=== PATIENT | female | born 1950 | race Two or more races ===

== ENCOUNTER 2021-01-07 08:00 | Outpatient (CLI) | payer OTHER | END 2021-01-07 08:30 | disposition home or self-care (01) | LOC: PPH VACUNA 08:00 | PROVIDERS: ATTEND Emergency Medicine Pediatric Emergency Medicine | DX: Z23 Encounter for immunization (principal) ==

== ENCOUNTER 2021-07-18 08:00 | Outpatient (CLI) | payer OTHER | END 2021-07-18 08:30 | disposition home or self-care (01) | LOC: PPH VACUNA 08:00 | PROVIDERS: ATTEND Emergency Medicine Pediatric Emergency Medicine | DX: Z23 Encounter for immunization (principal) ==

== ENCOUNTER 2022-07-24 | Outpatient (CLI) | payer OTHER | END 2022-07-24 00:15 | disposition home or self-care (01) | LOC: PPH VACUNA | PROVIDERS: ATTEND Emergency Medicine Pediatric Emergency Medicine | DX: Z23 Encounter for immunization (principal) ==

== ENCOUNTER → 2022-07-24 | Outpatient (CLI) | payer OTHER | END | disposition home or self-care (01) | LOC: PPH VACUNA | PROVIDERS: ATTEND Emergency Medicine Pediatric Emergency Medicine | DX: Z23 Encounter for immunization (principal) ==

== ENCOUNTER 2024-05-11 10:45 | Inpatient (IN) | payer OTHER ==
[~2024-05-11] VITALS: Ht 132.1 cm; Wt 64.9 kg
[2024-05-11 13:08] VITALS: BP 135/90
[2024-05-11 13:09] VITALS: BP 137/80
[2024-05-11 13:10] LABS: RH POSITIVE
[2024-05-11] MEDS ORDERED: SYNTHROID125 MCG PO (13:13)
[2024-05-11] MEDS ORDERED: COZAAR50 MG PO (13:14)
[2024-05-11] MEDS ORDERED: LOVAZA1 GM PO (13:14)
[2024-05-11] MEDS ORDERED: ZOFRAN8 MG (13:15)
[2024-05-11] MEDS ORDERED: BAYER THERAPY325 MG (13:16)
[2024-05-11] MEDS ORDERED: PROTONIX40 MG PO (13:16)
[2024-05-11] MEDS ORDERED: FLEXERIL (13:17)
[2024-05-11] MEDS ORDERED: PEPCID40 MG PO (13:17)
[2024-05-11] MEDS ORDERED: ANIMAL CHEWS1 EACH PO (13:18)
[2024-05-11] MEDS ORDERED: CLARINEX-D 121 EACH (13:18)
[2024-05-18] MEDS ORDERED: CHLORHEXIDINE GLUCONATE 120 ML BOTTLE TOP ONE (12:51)
[2024-05-18] MEDS ORDERED: METRONIDAZOLE/SODIUM CHLORIDE 500 MG/100 ML PIGGYBACK IV ONE (12:51)
[2024-05-18] MEDS ORDERED: CEFAZOLIN SODIUM 1,000 MG VIAL ONE ×2 (12:51→17:23)
[2024-05-18] MEDS ORDERED: MORPHINE SULFATE 4 MG/ML CARTRIDGE IV PRN (14:30)
[2024-05-18] MEDS ORDERED: RINGERS SOLUTION,LACTATED 1,000 ML IV SCH (14:30)
[2024-05-18] MEDS ORDERED: KETOROLAC TROMETHAMINE 30 MG VIAL IV NR (14:30)
[2024-05-18] MEDS ORDERED: THROMBIN,HU/FIBRINOGEN/CALCIUM 10 ML SYRINGE TOP ONE ×2 (14:37→15:00)
[2024-05-18] MEDS ORDERED: ENALAPRILAT DIHYDRATE 1.25 MG/ML VIAL IV ONE (16:05)
[2024-05-18] MEDS ORDERED: MORPHINE SULFATE 4 MG/ML VIAL IV ONE (16:45)
[2024-05-18] MEDS ORDERED: METOCLOPRAMIDE HCL 5 MG/ML VIAL IV SCH (17:00)
[2024-05-18] MEDS ORDERED: SIMETHICONE 125 MG CAPSULE PO SCH (17:00)
[2024-05-18] MEDS ORDERED: CEFAZOLIN SODIUM 1,000 MG VIAL IV SCH (17:00)
[2024-05-18] MEDS ORDERED: KETOROLAC TROMETHAMINE 30 MG VIAL ONE (17:22)
[2024-05-18] MEDS ORDERED: METOCLOPRAMIDE HCL 5 MG/ML VIAL ONE (17:23)
[2024-05-18] MEDS ORDERED: KETOROLAC TROMETHAMINE 30 MG VIAL IV ONE (17:25)
[2024-05-18] MEDS ORDERED: ACETAMINOPHEN 500 MG GEL..CAP PO SCH (18:00)
[2024-05-18] MEDS ORDERED: KETOROLAC TROMETHAMINE 30 MG VIAL IM SCH (18:00)
[2024-05-18 19:18] LABS: HEMATOCRIT 36.4 % (36.0-45.00); HEMOGLOBIN 12.3 g/dL (12.0-15.00); MEAN CELL VOLUME 103.9 fL (80.00-100.00); MEAN CORPUSCULAR HGB CONC 33.7 g/dl (32.0-36.0); PLATELET COUNT 202 K/uL (150-450); RED BLOOD COUNT 3.51 M/uL (4.00-6.00); RED CELL DISTRIBUTION WIDTH 14.6 % (11.5-14.5)
[2024-05-18 19:31] LABS: ALBUMIN 3.4 gm/dL (3.4-5.0); CALCIUM 8.9 mg/dL (8.5-10.1); CREATININE SERUM 0.68 mg/dL (0.55-1.02); GFR 85.05; PHOSPHOROUS 3.6 mg/dL (2.5-4.9); POTASSIUM 4.06 mEq/L (3.5-5.1)
[2024-05-18 19:37] VITALS: BP 137/80; O2SAT 97
[2024-05-18] MEDS ORDERED: FAMOTIDINE/PF 20 MG/2 ML VIAL IV PUSH SCH (21:00)
[2024-05-18] MEDS ORDERED: DOCUSATE SODIUM 100MG CAP PO SCH (21:00)
[2024-05-18] MEDS ORDERED: GABAPENTIN 300 MG CAPSULE PO SCH (21:00)
[2024-05-19 00:30] VITALS: BP 103/71; O2SAT 97
[2024-05-19 03:40] LABS: CALCIUM 8.5 mg/dL (8.5-10.1); CREATININE SERUM 0.74 mg/dL (0.55-1.02); GFR 77.14; PHOSPHOROUS 4.1 mg/dL (2.5-4.9); POTASSIUM 4.69 mEq/L (3.5-5.1)
[2024-05-19 03:53] LABS: HEMOGLOBIN 10.4 g/dL (12.0-15.00); MEAN CELL VOLUME 104.8 fL (80.00-100.00); MEAN CORPUSCULAR HEMOGLOBIN 35.1 pg (27.00-32.0); MEAN CORPUSCULAR HGB CONC 33.5 g/dl (32.0-36.0); PLATELET COUNT 203 K/uL (150-450); RED BLOOD COUNT 2.96 M/uL (4.00-6.00); RED CELL DISTRIBUTION WIDTH 14.2 % (11.5-14.5)
[2024-05-19 04:30] VITALS: BP 123/80
[2024-05-19 08:18] VITALS: BP 123/63; O2SAT 99
[2024-05-19] MEDS ORDERED: ENOXAPARIN SODIUM 40 MG/0.4 ML SYRINGE SUBCUTANEO SCH (09:00)
[2024-05-19] MEDS ORDERED: OxyCODONE HCL/APAP UD (PERCOCET) PO PRN (09:00)
[2024-05-19] MEDS ORDERED: CELECOXIB 200 MG CAPSULE PO SCH (09:00)
[2024-05-19 17:36] VITALS: BP 102/69; O2SAT 97
[2024-05-19 21:45] VITALS: BP 102/68; O2SAT 96
[2024-05-20 00:06] VITALS: BP 102/69; O2SAT 97
[2024-05-20] MEDS ORDERED: LEVOTHYROXINE SODIUM 125 MCG TABLET PO SCH (06:00)
[2024-05-20 08:00] VITALS: BP 96/65; O2SAT 98
[2024-05-20] MEDS ORDERED: LOSARTAN POTASSIUM 50 MG TABLET PO SCH (09:00)
== END 2024-05-20 11:23 | disposition home or self-care (01) | DRG 738 ==
LOC: OB/GYN 05-18 06:01 → O/R 05-18 06:01 → OB/GYN 05-18 10:45
PROVIDERS: Obstetrics & Gynecology; ADMIT Obstetrics & Gynecology Gynecologic Oncology; ATTEND Obstetrics & Gynecology Gynecologic Oncology
PROC: 0UT70ZZ Resection of Bilateral Fallopian Tubes, Open Approach (ICD-10-PCS; 2024-05-18)
PROC: 0DBW0ZZ Excision of Peritoneum, Open Approach (ICD-10-PCS; 2024-05-18)
PROC: 0UT20ZZ Resection of Bilateral Ovaries, Open Approach (ICD-10-PCS; 2024-05-18)
PROC: 07BC0ZZ Excision of Pelvis Lymphatic, Open Approach (ICD-10-PCS; 2024-05-18)
PROC: 07BD0ZZ Excision of Aortic Lymphatic, Open Approach (ICD-10-PCS; 2024-05-18)
PROC: 3E1M38Z Irrigation of Peritoneal Cavity using Irrigating Substance, Percutaneous Approach (ICD-10-PCS; 2024-05-18)
PROC: 0UT90ZZ Resection of Uterus, Open Approach (ICD-10-PCS; principal; 2024-05-18 16:45)
DX: C56.1 Malignant neoplasm of right ovary (principal); N84.1 Polyp of cervix uteri